=== PATIENT | male | born 1990 | race Caucasian/White ===

== ENCOUNTER 2022-10-10 14:45 | Emergency (ER) | payer BC, SELFPAY ==
--- NOTE | ~2022-10-10 | XR_ITS ---
EXAMINATION: XR finger 3rd RT min 2V DATE: 10/10/2022 15:40 INDICATION: Right hand third digit injury. TECHNIQUE: 3 views of right hand third digit were obtained. COMPARISON: None. FINDINGS: Bone alignment is normal. No fracture. Joint spaces are well maintained. There is soft tiss ue swelling of the third digit. IMPRESSION: 1. No fracture or radiopaque foreign body. Reviewed, dictated and finalized at location E.
[2022-10-10 15:10] VITALS: BP 133/88; PULSE 80; RESP 16; TEMP 36.5; O2SAT 98
--- NOTE | 2022-10-10 16:34 | ED.WOUNDLAC ---
HPI - Wound/Laceration General Chief Complaint: Wound/Laceration <Domenica Ortiz PA-C - Last Filed: 10/10/22 19:22> Stated Complaint: Infection in finger <ENRRIQUE Ogden Last Filed: 10/10/22 19:22> Time Seen by Provider: 10/10/22 16:16 <ENRRIQUE Ogden Last Filed: 10/10/22 19:22> History of Present Illness HPI narrative: 32-year-old male reports for evaluation of right third digit pain and swelling x3 days. Patient states 5 days ago, he was fishing and had a catfish fin cut his right third digit. States became swollen and tender, therefore he went to urgent care and was started on Augmentin and received a tetanus vaccine. States the pain and swelling have persisted and has not improved. He reports pain with ROM. No fevers, n/v. Patient states he did notice drainage out of the laceration yesterday and today that was yellow and green. <ENRRIQUE Ogden Last Filed: 10/10/22 19:22> Related Data Allergies/Adverse Reactions: Allergies Allergy/AdvReac Type Severity Reaction Status Date / Time No Known Allergies Allergy Verified 10/10/22 16:52 <ENRRIQUE Ogden Last Filed: 10/10/22 19:22> Review of Systems Review of Systems: CONSTITUTIONAL: Denies fever, chills EYES: Denies visual changes, redness, or discharge. ENT: Denies rhinorrhea, congestion, sore throat, or otalgia. CARDIOVASCULAR: Denies chest pain, palpitations, or edema. RESPIRATORY: Denies cough or dyspnea. GASTROINTESTINAL: Denies abdominal pain, nausea, vomiting, or diarrhea. GENITOURINARY: Denies dysuria or hematuria. SKIN: See HPI MUSCULOSKELETAL: Denies back pain, joint pain, or myalgia. NEUROLOGIC: Denies headache, numbness, dizziness, or weakness. PSYCHIATRIC: Denies anxiety or depression. <ENRRIQUE Ogden Last Filed: 10/10/22 19:22> Exam Narrative: GENERAL: Well-appearing, in no acute distress. HEAD: Normocephalic NECK: Supple. CHEST: No respiratory distress. Clear to auscultation, no adventitious breath sounds. HEART: Regular rate and rhythm. No murmur heard. Normal peripheral pulses. ABDOMEN: Soft, nontender, normal active bowel sounds. EXTREMITIES: RUE: 3rd digit with 2mm laceration with overlying scab to the radial aspect of the proximal phalanx, no drainage. Fusiform swelling to the proximal and medial phalanx with erythema extending to the dorsum of the 3rd metacarpal. Finger held in flexed position. Limited active flexion and extension. Pain with passive flexion and extension. Tenderness along the flexor tendon. Cap refill <2. Sensation intact. SKIN: See extremity exam NEURO: No focal deficits. Alert and oriented x3. PSYCH: Normal mood and affect. <Domenica Ortiz PA-C - Last Filed: 10/10/22 19:22> Course HEAD START ASSISTANT TEACHER/PA Physician Supervision For this patient encounter, I reviewed the HEAD START ASSISTANT TEACHER or PA documentation, treatment plan, and I was responsible for the medical decision making; and I had [id number] time with this patient. <Qamar Yates MD - Last Filed: 10/16/22 07:10> Vital Signs Vital signs: Vital Signs Temperature 97.7 F 10/10/22 15:10 Pulse Rate 80 10/10/22 15:10 Respiratory Rate 16 10/10/22 15:10 Blood Pressure 133/88 10/10/22 15:10 Pulse Oximetry 98 10/10/22 15:10 Temperature 97.7 F 10/10/22 15:10 Pulse Rate 82 10/10/22 18:04 Respiratory Rate 18 10/10/22 18:04 Blood Pressure 129/83 10/10/22 18:04 Pulse Oximetry 97 10/10/22 18:04 <Domenica Ortiz PA-C - Last Filed: 10/10/22 19:22> Vital Signs Temperature 97.7 F 10/10/22 15:10 Pulse Rate 80 10/10/22 15:10 Respiratory Rate 16 10/10/22 15:10 Blood Pressure 133/88 10/10/22 15:10 Pulse Oximetry 98 10/10/22 15:10 Temperature 97.7 F 10/10/22 15:10 Pulse Rate 82 10/10/22 18:04 Respiratory Rate 18 10/10/22 18:04 Blood Pressure 129/83 10/10/22 18:04 Pulse Oximetry 97 10/10/22 18:04 <Qamar Yates MD -
[2022-10-10 17:27] LABS: Basophils Percent Auto 0.4 % (0.2-1.2); Eosinophils Absolute Auto 0.1 K/mm3 (0-0.3); Eosinophils Percent Auto 1.3 % (0-4.4); Hematocrit 46.5 % (42.0-52.0); Hemoglobin 15.1 g/dL (14.0-18.0); Immature Granulocyte Absolute 0.02 K/mm3 (0.00-0.031); Immature Granulocyte Percent A 0.3 % (0-0.5); Lymphocytes Absolute Auto 1.49 K/mm3 (0.9-3.2); Lymphocytes Percent Auto 19.5 % (18.3-44.2); Mean Corpuscular HGB Conc 32.5 g/dl (32-36); Mean Corpuscular Hemoglobin 26.9 pg (26-34); Mean Corpuscular Volume 82.9 fl (80-100); Mean Platelet Volume 12.2 fl (7.4-10.4); Monocytes Absolute Auto 0.6 K/mm3 (0.1-0.6); Monocytes Percent Auto 8.3 % (2.6-8.5); Neutrophils Absolute Auto 5.4 K/mm3 (1.3-6.7); Neutrophils Percent Auto 70.2 % (45.5-73.1); Platelet Count Result 214 k/mm3 (150-375); Red Blood Count 5.61 M/mm3 (4.6-6.20); Red Cell Distribution Width 13.4 % (11.5-14.5); White Blood Count 7.6 K/mm3 (4.5-10.0)
[2022-10-10 17:57] LABS: Erythrocyte Sedimentation Rate 16 mm/hr (0-20)
[2022-10-10 17:59] LABS: Alanine Aminotransferase 24 U/L (6-50); Alkaline Phosphatase 83 U/L (38-126); Anion Gap 12 mmol/L (8-16); Aspartate Amino Transferase 25 U/L (17-59); Blood Urea Nitrogen 12 mg/dL (9-20); Calcium 9.6 mg/dL (8.4-10.2); Carbon Dioxide 24 mmol/L (22-30); Chloride 102 mmol/L (98-107); Estimated CRCL calculation 140 ml/min; Estimated Glomerular Filt Rate > 60; Glucose 91 mg/dL (65-110); Potassium 3.9 mmol/L (3.4-5.0); Sodium 138 mmol/L (137-145)
[2022-10-10] MEDS: levoFLOXacin 750 MG/D5W 150 ML 750 MG/150 ML BAG 100 MG IVPB (18:02)
[2022-10-10 18:04] VITALS: BP 129/83; PULSE 82; RESP 18; O2SAT 97
== END 2022-10-10 19:50 | disposition short-term general hospital (02) ==
PROVIDERS: Emergency Provider Physician Assistant
DX: L03.011 Cellulitis of right finger (principal)
CPT/HCPCS: 36415; 73140; 80053; 85025; 85652; 86140; 96365; 96375; 99285; J1956; J3370